=== PATIENT | male | born 1950 | race Caucasian/White ===

== ENCOUNTER 2020-06-16 08:13 | Outpatient (CLI) | payer MEDICARE, OTHER ==
[2020-06-16 14:31] LABS: INR-International Normal Ratio 0.9; Prothrombin Time 12.3 sec (12.0-14.7)
[2020-06-16 14:39] LABS: #Basophils 0.1 thou/uL (0.0-0.2); #Eosinphils 0.5 thou/uL (0.0-0.7); #Monocytes 1.1 thou/uL (0.11-0.59); #Neutrophils 6.3 thou/uL (1.40-6.50); %Basophils 0.7 % (0.0-1.0); %Eosinophils 4.4 % (0.0-10.0); %Lymphocytes 27.2 % (21.0-51.0); %Monocytes 10.3 % (0.0-10.0); %Neutrophils 57.4 % (42.0-75.0); Hemoglobin 15.7 g/dL (14.0-18.0); Mean Corpuscular HGB CONC 34.3 g/dL (32.0-36.0); Mean Corpuscular Hemoglobin 31.7 pg (27.0-31.0); Mean Corpuscular Volume 92.4 fL (78.0-98.0); Mean Platelet Volume 9.5 fL (7.4-10.4); Platelet Count 248 thou/uL (130-400); RBC Distribution Width 12.3 % (11.5-14.5); Red Blood Cell (RBC) Count 4.94 mill/uL (4.70-6.10)
[2020-06-16 15:29] LABS: Chloride 101 mmol/L (98-107); Potassium 4.1 mmol/L (3.5-5.1); Sodium 137 mmol/L (136-145)
[2020-06-16 15:30] LABS: Calcium 9.6 mg/dL (7.8-10.44); Glucose 88 mg/dL (83-110)
[2020-06-16 15:32] LABS: Anion Gap 13 mmol/L (10-20); Carbon Dioxide 27 mmol/L (23-31)
[2020-06-16 15:34] LABS: Calc. Creatinine Clearance 0 mL/min (70-130); Estimated GFR-MDRD 61
[2020-06-16 15:35] LABS: BUN (Urea Nitrogen) 19 mg/dL (8.4-25.7)
[2020-06-17 13:49] LABS: SARS-CoV-2 MS2 Positive; SARS-CoV-2 N Gene Negative; SARS-CoV-2 S Gene Negative; SARS-CoV-2 by NAA Not Detected (NotDetected); SARS-CoV-2 orf1ab Negative
== END 2020-06-16 08:14 | disposition home or self-care (01) ==
LOC: LABBT 08:13
PROVIDERS: ATTEND Orthopaedic Surgery
DX: Z01.812 Encounter for preprocedural laboratory examination (principal); Z20.828 Contact with and (suspected) exposure to other viral communicable diseases; M17.12 Unilateral primary osteoarthritis, left knee
CPT/HCPCS: 80048; 85025; 85610; U0003; 87635

== ENCOUNTER 2020-06-16 11:30 | Inpatient (IN) | payer MEDICARE, OTHER ==
[2020-06-21] MEDS ORDERED: Fentanyl 100 MCG/2 ML VIAL ONE ×2 (08:47→09:04)
[2020-06-21] MEDS ORDERED: Vancomycin 1.5 GRAM/300 ML BAG ONE (09:02)
[2020-06-21] MEDS ORDERED: Tranexamic Acid 1,000 MG/10 ML VIAL ONE (09:02)
[2020-06-21] MEDS ORDERED: Sodium Chloride 0.9% 100 ML ONE (09:03)
[2020-06-21] MEDS ORDERED: Midazolam HCl 2 mg/2 ml Vial ONE (09:04)
[2020-06-21] MEDS ORDERED: HYDROcodone/Acetaminophen 10/325 mg Tablet PO PRN (09:38)
[2020-06-21] MEDS ORDERED: Promethazine HCl 25 MG/ML VIAL IM PRN ×2 (09:38→11:31)
[2020-06-21] MEDS ORDERED: Ondansetron PF 4 MG/2 ML Vial IVP PRN ×2 (09:38→11:31)
[2020-06-21] MEDS ORDERED: traMADol HCl 50 MG TAB PO PRN ×2 (09:38)
[2020-06-21] MEDS ORDERED: Zolpidem Tartrate 5 MG TAB PO PRN ×2 (09:38→11:31)
[2020-06-21] MEDS ORDERED: Ropivacaine HCl/PF 250 ML in Premix Bag 1 BAG NERVE BLCK SCH (09:38)
[2020-06-21] MEDS ORDERED: Fentanyl 100 MCG/2 ML VIAL IV PRN (09:39)
[2020-06-21] MEDS ORDERED: Ropivacaine 0.2% HCl/PF (40 MG/20 ML VIAL) ONE (09:52)
[2020-06-21] MEDS ORDERED: PROPOFOL 200 MG/20 ML VIAL ONE (09:52)
[2020-06-21] MEDS ORDERED: Dexamethasone 20 MG/5 ML VIAL ONE (09:52)
[2020-06-21] MEDS ORDERED: Bupivacaine HCl 0.5%/Epinephrine 1:200,000/PF 30 ml Vial ONE (09:52)
[2020-06-21] MEDS ORDERED: Ondansetron PF 4 MG/2 ML Vial ONE (09:52)
[2020-06-21] MEDS ORDERED: EPHEDRINE 25 MG/5 ML SYRINGE ONE (09:52)
[2020-06-21] MEDS ORDERED: diphenhydrAMINE 25 MG CAP PO PRN (11:31)
[2020-06-21] MEDS ORDERED: Acetaminophen 325 MG TAB PO PRN (11:31)
[2020-06-21 12:58] VITALS: BMI 28.5
--- NOTE | 2020-06-21 13:01 | RAD ---
LEFT KNEE 2 VIEWS: Date: 06/21/2020 HISTORY: Total knee arthroplasty postop. FINDINGS/IMPRESSION: There are recent postop changes of total knee arthroplasty in good position and alignment. Soft tissu e air is present. POS: OFF
[2020-06-21] MEDS: Ketorolac Tromethamine 30 MG/ML VIAL IVP SCH ×3 (13:16→23:46)
[2020-06-21] MEDS: Sodium Chloride 0.9% 1,000 ML IV SCH ×2 (15:06→23:14)
--- NOTE | 2020-06-21 15:54 | OP ---
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 OPERATIVE PROCEDURE: Cemented posterior stabilized computer-assisted navigated left total knee arthroplasty. DOCKET SPECIALIST: Freeman Du PA-C. ANESTHESIA: General via LMA augmented with indwelling adductor canal and single-shot sciatic block. COMPONENTS USED: [facility] Triathlon size 6 posterior stabilized cemented femoral component with a size 6 primary tibial base plate, 9 mm polyethylene fixed bearing posterior stabilized polyethylene insert, and A38 patella button. FINDINGS: End-stage severe degenerative tricompartmental disease, [id number] arthrosis, periarticular osteophyte formation, large serous effusion, hypertrophic synovium, changes consistent with degenerative tricompartmental osteoarthritis, and multidirectional instability to include medial collateral, anterior cruciate, and posterior cruciate ligaments. Severe dishing of tibial plateau. TOURNIQUET TIME: 63 minutes at 300 mmHg. FLUIDS: Input, 1 L crystalloid. Output, none recorded. No Wong placed. ESTIMATED BLOOD LOSS: Less than 100. DRAINS: None. SPECIMENS: None. COMPLICATIONS: None. COUNTS: Correct. INDICATION FOR SURGERY: Leslie is a 70-year-old white male, who has had progressive left knee pain and problems with standing and walking for the last 5 to 7 years. He has failed conservative management and elected to proceed with total knee arthroplasty as definitive treatment of his pain. PROCEDURE IN DETAIL: After informed consent was obtained in the preoperative holding area, the patient was taken to the operative suite where general anesthesia was induced. Once adequate level of general anesthesia was obtained, the patient was positioned and a well-padded tourniquet was placed around the left proximal thigh. The left lower extremity was then prepped and draped in the usual sterile fashion. Prior to exsanguination, a time-out was called and all members of the surgical team agreed upon site, surgeon, and patient. The extremity was then exsanguinated and the tourniquet was raised. A midline longitudinal incision was then made directly over the patella extending 2 fingerbreadths above the superior pole of the patella and 2 fingerbreadths inferior to the inferior patellar pole of the patella. Deeper subcutaneous layers were dissected sharply and local bleeding was controlled with Bovie electrocautery. A quad tendon longitudinal split was then made sharply and a median parapatellar arthrotomy was carried out both sharp and with Bovie electrocautery, carried down to 1 fingerbreadth medial to the tibial tubercle. The knee was then placed into flexion and the patella was everted nicely, and a copious fat pad ectomy was performed allowing for greater exposure of the tibia. The computer-assisted distal femoral fiducial was then placed and pinned firmly, and the distal femoral cutting guide was pinned firmly into place. The oscillating saw was then used to remove the appropriate amount of bone. The 4-in-1 cutting block was then placed on the distal femur and the oscillating saw was used to remove the appropriate amount of bone off the anterior, posterior, and chamfer cuts. The intercondylar box cutting guide was then placed and pinned firmly into place. We used the oscillating saw to remove the medial wall of the lateral femoral condyle and lateral wall of the medial femoral condyle and the notch resecting osteotome was then used to create the box cut, and the PCL was removed with Bovie electrocautery. After completion of bone cuts, the anterior cruciate ligament was resected sharply and the posterior cruciate ligament retractor was placed and the tibia was subluxed for better exposure. Partial meniscectomies were carried out, and the tibial computer-assisted fiducial was pinned, and the cutting guide was placed. Oscillating saw was then used to remove the bone, with Hohmann retractors used to take care and protect the collateral ligaments. After the tibial resection was performed, a laminar registered nurse nursery was placed in between the freshened bone cuts. The knee placed at 90 degrees and further bilateral meniscectomies were carried out, and the curved osteotome and curettage were used to remove any excess bone spurs in the posterior compartment. The trial femoral component, tibial baseplate were placed with the appropriate polyethylene trial insert with an appropriate polyethylene spacer and patellar button. The knee was taken through full range of motion with flexion and extension from 0 to 90 degrees and patellar broach squarely in the trochlea without any squinting or subluxation noted. The knee was also stable to varus and valgus stressing at 0, 15, 45, and 90 degrees of flexion. The drawer was negative. All trial components were then removed and the keel punch was used to provide the appropriate defect in the tibia with a mallet. The freshened bone cuts were copiously irrigated with pulsatile lavage of about 1.5 L to remove all excess debris. The freshened bone cuts were then dried with suction and lap sponge. The knee was placed in flexion and retractors were placed to provide access to all bone cuts. Tobramycin-impregnated methyl methacrylate cement was then placed on the freshened bone cuts and implants which were malleted firmly into place. Curettage and [place] elevators were used to remove any excess bone cement. The knee was placed into full extension and the patellar button was placed under compression, and the cement was allowed to cure. Once completed, the components were again taken through full range of motion and copious irrigation of the knee was carried out with another liter of normal saline. All components were inspected fully with full range of motion and varus and valgus stressing. There was no laxity noted and full extension was observed clinically. Primary closure was accomplished with #2 interrupted Vicryl stitch of the arthrotomy defect. This was oversewn with a #2 running Quill barbed stitch. The gravitational platelet system was then injected into the arthrotomy prior to closure. The subcutaneous layer was then closed with a running 0 barbed Monocryl stitch and skin closure accomplished with a running subcuticular 3-0 Monocryl barbed Quill stitch and augmented with cement on the skin. Tourniquet was lowered. Good spontaneous return of distal pulses was noted clinically and a sterile dressing was applied to the incision. The procedure was terminated without any complications. The patient was awakened in the operative suite and the patient was taken to the recovery room in stable condition. Job ID: [id number]
[2020-06-21] MEDS: CEFAZOLIN 2 GM in Premix Bag 1 BAG IVPB SCH (18:08)
[2020-06-21] MEDS: Aspirin 81 mg Enteric Coated Tablet PO SCH (20:14)
[2020-06-21] MEDS: Metoprolol Tartrate 50 MG TAB PO SCH (20:14)
[2020-06-21] MEDS: Lisinopril 5 MG TAB PO SCH (20:14)
[2020-06-21] MEDS: HYDROcodone/Acetaminophen 10/325 mg Tablet PO PRN (20:17)
[2020-06-22] MEDS: CEFAZOLIN 2 GM in Premix Bag 1 BAG IVPB SCH (01:29)
[2020-06-22 05:13] LABS: Hemoglobin 12.9 g/dL (14.0-18.0); Mean Corpuscular HGB CONC 33.3 g/dL (32.0-36.0); Mean Corpuscular Hemoglobin 31.3 pg (27.0-31.0); Mean Platelet Volume 8.6 fL (7.4-10.4); Platelet Count 184 thou/uL (130-400); RBC Distribution Width 12.8 % (11.5-14.5); Red Blood Cell (RBC) Count 4.11 mill/uL (4.70-6.10); White Blood Cell (WBC) Count 18.1 thou/uL (4.8-10.8)
[2020-06-22] MEDS: Ketorolac Tromethamine 30 MG/ML VIAL IVP SCH ×4 (06:21→23:55)
[2020-06-22] MEDS: Lisinopril 5 MG TAB PO SCH ×2 (08:05→20:36)
[2020-06-22] MEDS: Aspirin 81 mg Enteric Coated Tablet PO SCH ×2 (08:05→20:36)
[2020-06-22] MEDS: Senokot S 8.6-50 MG TAB PO SCH ×2 (08:06→20:34)
[2020-06-22] MEDS: Multivitamin W/ Minerals 1 TAB PO SCH (08:06)
[2020-06-22] MEDS: Hydrochlorothiazide 25 MG TAB PO SCH (08:07)
[2020-06-22] MEDS: Metoprolol Tartrate 50 MG TAB PO SCH ×2 (08:07→20:35)
[2020-06-22] MEDS: Ferrous Gluconate 324 MG TAB PO SCH ×2 (08:07→20:36)
[2020-06-22] MEDS: HYDROcodone/Acetaminophen 10/325 mg Tablet PO PRN ×2 (08:08→20:35)
[2020-06-22] MEDS ORDERED: Non-Formulary Item 1 EACH (Multivitamin [Multi-Day Vitamins] 1 TABLET) PO SCH (09:00)
[2020-06-22] MEDS ORDERED: Aspirin 325 mg Enteric Coated Tablet PO SCH (09:00)
--- NOTE | 2020-06-22 11:02 | PRG ---
DATE OF SERVICE: 06/22/2020 SUBJECTIVE: Leslie is a 70-year-old white male, who is postop day 1 from a left total knee arthroplasty in utilizing a posterior stabilized construct. He is doing relatively well. His pain is controlled and he has no complaints. He does admit to a little bit of weakness in the left leg, especially with inability to dorsiflex. OBJECTIVE: VITAL SIGNS: Temperature 98.1, pulse 70 and regular, respiratory rate is 14 and nonlabored, O2 saturation is 94% on room air, blood pressure is 117/66. GENERAL: He is alert and oriented to person, place, time, and situation. Responsive and appropriate with examiner. His incision is clean. No strike through. No erythema. He does have a footdrop on the left and he has dorsiflexion, but he does have inversion and plantar flexion. Hemoglobin and hematocrit are 12.9 and 38.6. IMPRESSION: A 70-year-old male, postoperative day 1, left total knee arthroplasty, doing very well with the exception of left footdrop. Pain is controlled. Stable hemoglobin and hematocrit. PLAN: Continue current care. We will re-examine tomorrow after removal of block; if his dorsiflexion improves, give consideration to ankle-foot orthosis should it persist. Job ID: [id number]
[2020-06-22] MEDS: Sodium Chloride 0.9% 1,000 ML IV SCH ×2 (12:22→18:12)
[2020-06-23] MEDS: Sodium Chloride 0.9% 1,000 ML IV SCH (03:37)
[2020-06-23] MEDS: Ketorolac Tromethamine 30 MG/ML VIAL IVP SCH (05:18)
[2020-06-23] MEDS: Aspirin 81 mg Enteric Coated Tablet PO SCH (08:07)
[2020-06-23] MEDS: Hydrochlorothiazide 25 MG TAB PO SCH (08:07)
[2020-06-23] MEDS: Lisinopril 5 MG TAB PO SCH (08:07)
[2020-06-23] MEDS: Multivitamin W/ Minerals 1 TAB PO SCH (08:07)
[2020-06-23] MEDS: Senokot S 8.6-50 MG TAB PO SCH (08:07)
[2020-06-23] MEDS: Ferrous Gluconate 324 MG TAB PO SCH (08:07)
[2020-06-23] MEDS: Metoprolol Tartrate 50 MG TAB PO SCH (08:08)
[2020-06-23] MEDS: HYDROcodone/Acetaminophen 10/325 mg Tablet PO PRN (08:08)
[2020-06-23 08:15] VITALS: TEMP 98.3
[2020-06-23 11:50] VITALS: BP 104/63
== END 2020-06-23 14:15 | disposition home or self-care (01) | DRG 470 ==
LOC: SURG A 06-21 08:12 → SJJU 06-21 12:18
PROVIDERS: ADMIT Orthopaedic Surgery; ATTEND Orthopaedic Surgery
PROC: 0SRD0J9 Replacement of Left Knee Joint with Synthetic Substitute, Cemented, Open Approach (ICD-10-PCS; principal; 2020-06-21)
PROC: 8E0YXBZ Computer Assisted Procedure of Lower Extremity (ICD-10-PCS; 2020-06-21)
DX: M17.12 Unilateral primary osteoarthritis, left knee (principal); M21.372 Foot drop, left foot; I10 Essential (primary) hypertension; I25.10 Atherosclerotic heart disease of native coronary artery without angina pectoris; K21.9 Gastro-esophageal reflux disease without esophagitis; Z96.651 Presence of right artificial knee joint; N40.0 Benign prostatic hyperplasia without lower urinary tract symptoms; I25.2 Old myocardial infarction; Z95.1 Presence of aortocoronary bypass graft; Z85.828 Personal history of other malignant neoplasm of skin; Z79.899 Other long term (current) drug therapy; Z79.82 Long term (current) use of aspirin
CPT/HCPCS: 36415; 85027; C1713; C1776; J0670; J0690; J1100; J1885; J2250; J2405; J2704; J2795; J3010; J3370; J3490

== ENCOUNTER 2023-04-19 10:09 | Outpatient (CLI) | payer MEDICARE, OTHER ==
[2023-04-19 12:26] LABS: #Eosinphils 0.2 10x3/uL (0.0-0.5); #Monocytes 1.3 10x3/uL (0.0-1.1); #Neutrophils 6.5 10x3/uL (1.5-8.4); %Basophils 0.3 % (0.0-2.0); %Eosinophils 2.2 % (0.0-6.0); %Lymphocytes 22.3 % (18.0-47.0); %Monocytes 12.8 % (0.0-10.0); %Neutrophils 62.1 % (40.0-75.0); Hemoglobin 15.2 g/dL (13.5-17.5); Mean Corpuscular HGB CONC 34.3 g/dL (32.0-36.0); Mean Corpuscular Hemoglobin 30.5 pg (27.0-33.0); Mean Corpuscular Volume 88.8 fl (81.2-95.1); Mean Platelet Volume 11.3 fl (7.4-10.4); Platelet Count 211 10x3/uL (150-450); Red Blood Cell (RBC) Count 4.99 10x6/uL (4.32-5.72); White Blood Cell (WBC) Count 10.4 10x3/uL (3.5-10.5)
[2023-04-19 12:57] LABS: Anion Gap 14 mmol/L (10-20); BUN (Urea Nitrogen) 18 mg/dL (8.4-25.7); Calc. Creatinine Clearance 0 mL/min (70-130); Calcium 9.2 mg/dL (7.8-10.44); Carbon Dioxide 29 mmol/L (23-31); Chloride 103 mmol/L (98-107); Estimated GFR 77; Glucose 90 mg/dL (83-110); Sodium 142 mmol/L (136-145)
== END 2023-04-19 10:10 | disposition home or self-care (01) ==
LOC: LABBT 10:09
PROVIDERS: ATTEND Orthopaedic Surgery
DX: Z01.818 Encounter for other preprocedural examination (principal); M12.811 Other specific arthropathies, not elsewhere classified, right shoulder
CPT/HCPCS: 71046; 80048; 85025; 93005; 93010

== ENCOUNTER 2023-04-23 05:50 | Day surgery (SDC) | payer MEDICARE, OTHER ==
[2023-04-19 11:01] VITALS: BMI 27.7
[2023-04-23] MEDS ORDERED: Vancomycin (BATCH) 1.5 GRAM/300 ML BAG ONE (06:22)
[2023-04-23] MEDS ORDERED: Tranexamic Acid 1,000 MG/10 ML VIAL ONE ×2 (06:22→10:12)
[2023-04-23] MEDS ORDERED: Sodium Chloride 0.9% 100 ML ONE ×2 (06:22→07:13)
[2023-04-23] MEDS ORDERED: Ropivacaine 0.5% HCl/PF (150 MG/30 ML VIAL) ONE (06:55)
[2023-04-23] MEDS ORDERED: fentaNYL 50 mcg/mL 1 mL Vial ONE (06:55)
[2023-04-23] MEDS ORDERED: Midazolam HCl 2 mg/2 ml Vial ONE (06:55)
[2023-04-23] MEDS ORDERED: CEFAZOLIN 2 GM VIAL ONE (07:13)
[2023-04-23] MEDS ORDERED: PROPOFOL 200 MG/20 ML VIAL ONE (07:27)
[2023-04-23] MEDS ORDERED: Ondansetron PF 4 MG/2 ML Vial ONE (07:27)
[2023-04-23] MEDS ORDERED: Rocuronium Bromide 10 MG/ML (10ML VIAL) ONE (07:27)
[2023-04-23] MEDS ORDERED: PHENYLEPHRINE-NS 100 MCG/ML 10 ML SYRINGE ONE (07:27)
[2023-04-23] MEDS ORDERED: fentaNYL PF 100 MCG/2 ML SYRINGE ONE (07:28)
[2023-04-23] MEDS ORDERED: traMADol HCl 50 MG TAB PO PRN ×2 (07:45)
[2023-04-23] MEDS ORDERED: Ondansetron PF 4 MG/2 ML Vial IVP PRN (07:45)
[2023-04-23] MEDS ORDERED: Promethazine HCl 25 MG/ML VIAL IM PRN (07:45)
[2023-04-23] MEDS ORDERED: HYDROcodone/Acetaminophen 10/325 mg Tablet PO PRN ×2 (07:45)
[2023-04-23] MEDS ORDERED: Zolpidem Tartrate 5 MG TAB PO PRN (07:45)
[2023-04-23] MEDS ORDERED: Ropivacaine 0.2% 550 ML 550 ML NERVE BLCK SCH (07:45)
[2023-04-23] MEDS ORDERED: SUGAMMADEX SODIUM 200 MG/2 ML VIAL ONE (09:22)
[2023-04-23] MEDS ORDERED: Ketorolac Tromethamine 30 MG/ML VIAL IVP SCH (12:00)
== END 2023-04-23 13:06 | disposition home or self-care (01) ==
LOC: SDC 05:50
PROVIDERS: ATTEND Orthopaedic Surgery
PROC: 0RRJ00Z Replacement of Right Shoulder Joint with Reverse Ball and Socket Synthetic Substitute, Open Approach (ICD-10-PCS; principal; 2023-04-23)
DX: M12.811 Other specific arthropathies, not elsewhere classified, right shoulder (principal); I10 Essential (primary) hypertension; I25.10 Atherosclerotic heart disease of native coronary artery without angina pectoris; E78.5 Hyperlipidemia, unspecified; K21.9 Gastro-esophageal reflux disease without esophagitis; Z79.899 Other long term (current) drug therapy; Z79.82 Long term (current) use of aspirin; Z96.652 Presence of left artificial knee joint
CPT/HCPCS: 23472; A4306; C1713 ×6; J3010; J3370; J2250; J2405; J2704; J2795; J3490

== ENCOUNTER 2023-06-19 11:54 | Outpatient (CLI) | payer MEDICARE, OTHER | END 2023-06-19 11:55 | disposition home or self-care (01) | LOC: RAD 11:54 | PROVIDERS: ATTEND Internal Medicine Critical Care Medicine | DX: R06.00 Dyspnea, unspecified (principal); I51.7 Cardiomegaly | CPT/HCPCS: 71046 ==

== ENCOUNTER 2023-06-26 09:51 | Inpatient (IN) | payer MEDICARE, OTHER ==
[2023-06-26 10:13] LABS: #Eosinphils 0.2 thou/uL (0.0-0.7); #Monocytes 0.9 thou/uL (0.11-0.59); #Neutrophils 8.1 thou/uL (1.40-6.50); %Basophils 0.2 % (0.0-1.0); %Eosinophils 1.9 % (0.0-10.0); %Lymphocytes 21.2 % (21.0-51.0); %Monocytes 7.5 % (0.0-10.0); %Neutrophils 68.9 % (42.0-75.0); Hematocrit 45.5 % (42.0-52.0); Hemoglobin 15.6 g/dL (14.0-18.0); Mean Corpuscular HGB CONC 34.3 g/dL (32.0-36.0); Mean Corpuscular Hemoglobin 29.9 pg (27.0-31.0); Mean Corpuscular Volume 87.3 fl (78.0-98.0); Mean Platelet Volume 10.8 fL (7.4-10.4); Platelet Count 300 10x3/uL (130-400); RBC Distribution Width 14.5 % (11.5-14.5); Red Blood Cell (RBC) Count 5.21 mill/uL (4.70-6.10); White Blood Cell (WBC) Count 11.7 10x3/uL (4.8-10.8)
[2023-06-26 10:39] LABS: ALT (SGPT) 34 U/L (8-55); AST (SGOT) 30 U/L (5-34); Albumin 4.3 g/dL (3.4-4.8); Alkaline Phosphatase 67 U/L (40-110); Anion Gap 13 mmol/L (10-20); BUN (Urea Nitrogen) 16 mg/dL (8.4-25.7); Bilirubin, Total 0.8 mg/dL (0.2-1.2); Calc. Creatinine Clearance 0 mL/min (70-130); Carbon Dioxide 26 mmol/L (23-31); Chloride 103 mmol/L (98-107); Estimated GFR 70; Globulin 3.5 g/dL (2.4-3.5); Glucose 96 mg/dL (83-110); Potassium 3.6 mmol/L (3.5-5.1); Protein, Total 7.8 g/dL (5.8-8.1); Sodium 138 mmol/L (136-145)
[2023-06-26 10:41] LABS: Troponin I 0.067 ng/mL (< 0.028)
[2023-06-26 10:50] LABS: Prothrombin Time 13.7 sec (12.0-14.7)
[2023-06-26 10:51] LABS: PTT 29.8 sec (22.9-36.1)
[2023-06-26 10:53] LABS: D-Dimer Test 1.52 *mcg/mL (0.27-0.43)
[2023-06-26] MEDS ORDERED: Iopamidol-370 76% 500 ML MDV (1 ML CHARGE) ONE (11:40)
[2023-06-26] MEDS ORDERED: Aspirin Chewable 81 MG TAB ONE (13:33)
[2023-06-26] MEDS ORDERED: Furosemide 40 MG/4 ML VIAL ONE (13:33)
[2023-06-26] MEDS ORDERED: Nitroglycerin 2% Ointment 1 INCH/1 GM Packet ONE (13:33)
[2023-06-26 14:15] LABS: Troponin I 0.067 ng/mL (< 0.028)
[2023-06-26 18:29] LABS: Troponin I 0.074 ng/mL (< 0.028)
[2023-06-26] MEDS ORDERED: Ondansetron PF 4 MG/2 ML Vial IVP PRN (18:40)
[2023-06-26] MEDS ORDERED: Acetaminophen 325 MG TAB PO PRN (18:40)
[2023-06-26] MEDS ORDERED: HYDROcodone/Acetaminophen 5/325 mg Tablet PO PRN ×2 (18:40)
[2023-06-26] MEDS ORDERED: Bisacodyl 5 MG TAB PO PRN (18:40)
[2023-06-26] MEDS ORDERED: Furosemide 40 MG/4 ML VIAL SLOW IVP SCH (18:45)
[2023-06-26 20:04] VITALS: BMI 27.3
[2023-06-26] MEDS ORDERED: Communication Order-Pharmacy FS SCH (21:15)
[2023-06-27 05:11] LABS: #Eosinphils 0.2 thou/uL (0.0-0.7); #Neutrophils 7.3 thou/uL (1.40-6.50); %Basophils 0.3 % (0.0-1.0); %Eosinophils 2.2 % (0.0-10.0); %Lymphocytes 19.4 % (21.0-51.0); %Monocytes 9.5 % (0.0-10.0); %Neutrophils 68.3 % (42.0-75.0); Hematocrit 39.3 % (42.0-52.0); Hemoglobin 13.1 g/dL (14.0-18.0); Mean Corpuscular HGB CONC 33.3 g/dL (32.0-36.0); Mean Corpuscular Hemoglobin 29.6 pg (27.0-31.0); Mean Corpuscular Volume 88.9 fl (78.0-98.0); Mean Platelet Volume 11.3 fL (7.4-10.4); Platelet Count 231 10x3/uL (130-400); RBC Distribution Width 14.4 % (11.5-14.5); Red Blood Cell (RBC) Count 4.42 mill/uL (4.70-6.10); White Blood Cell (WBC) Count 10.7 10x3/uL (4.8-10.8)
[2023-06-27] MEDS: Furosemide 40 MG/4 ML VIAL SLOW IVP SCH ×2 (05:14→14:08)
[2023-06-27 05:42] LABS: Anion Gap 11 mmol/L (10-20); BUN (Urea Nitrogen) 19 mg/dL (8.4-25.7); Calc. Creatinine Clearance 74 mL/min (70-130); Calcium 9.3 mg/dL (7.8-10.44); Carbon Dioxide 27 mmol/L (23-31); Chloride 105 mmol/L (98-107); Estimated GFR 67; Glucose 89 mg/dL (83-110); Potassium 3.5 mmol/L (3.5-5.1); Sodium 139 mmol/L (136-145)
[2023-06-27] MEDS ORDERED: Lidocaine 1% (PF) 30 ML VIAL ONE (06:22)
[2023-06-27] MEDS ORDERED: Midazolam HCl 2 mg/2 ml Vial ONE (06:22)
[2023-06-27] MEDS ORDERED: fentaNYL 50 mcg/mL 1 mL Vial ONE (06:23)
[2023-06-27] MEDS ORDERED: Heparin 10,000 UNITS/ 10 ML VIAL ONE (06:24)
[2023-06-27] MEDS ORDERED: Nitroglycerin 50 MG/250 ML BOT 0 ML ONE (06:24)
[2023-06-27] MEDS ORDERED: Potassium Chloride 10 MEQ TAB PO SCH (08:00)
[2023-06-27] MEDS ORDERED: Aspirin 325 mg Enteric Coated Tablet PO SCH (09:00)
[2023-06-27] MEDS ORDERED: Lisinopril 10 MG TAB PO SCH (09:00)
[2023-06-27] MEDS ORDERED: Nitroglycerin 0.4 MG TAB (25 Tab Bottle) SL PRN (09:21)
[2023-06-27] MEDS ORDERED: Sodium Chloride 0.9% 200 ML IV PRN (09:21)
[2023-06-27] MEDS ORDERED: Acetaminophen/Codeine 30-300mg Tablet PO PRN ×2 (09:21)
[2023-06-27 09:55] LABS: Cardiac Risk 3.7 (Less than 4.5)
[2023-06-27] MEDS ORDERED: Aspirin 81 mg Enteric Coated Tablet PO SCH (10:45)
[2023-06-27] MEDS ORDERED: Iopamidol 370 76% 100 ML VIAL ONE (15:20)
[2023-06-27 16:49] VITALS: TEMP 98.3
[2023-06-27 16:58] VITALS: BP 132/77
[2023-06-27] MEDS ORDERED: Atorvastatin Calcium 10 MG TAB PO SCH (21:00)
[2023-06-28] MEDS ORDERED: Aspirin 81 mg Enteric Coated Tablet PO SCH (09:00)
[2023-06-29] MEDS ORDERED: Sacubitril 24MG/Valsartan 26 MG TAB PO SCH (09:00)
== END 2023-06-27 20:07 | disposition home or self-care (01) | DRG 286 ==
LOC: ERS 09:51 → ERHOLD 13:10 → 2SW 18:29 → IMCU/EMU 18:30 → 2SW 18:39 → OBSVTOIN 06-27 13:35
PROVIDERS: ADMIT Internal Medicine; ATTEND Family Medicine
PROC: 4A023N8 Measurement of Cardiac Sampling and Pressure, Bilateral, Percutaneous Approach (ICD-10-PCS; principal; 2023-06-27)
PROC: B2151ZZ Fluoroscopy of Left Heart using Low Osmolar Contrast (ICD-10-PCS; 2023-06-27)
PROC: B2111ZZ Fluoroscopy of Multiple Coronary Arteries using Low Osmolar Contrast (ICD-10-PCS; 2023-06-27)
PROC: B2131ZZ Fluoroscopy of Multiple Coronary Artery Bypass Grafts using Low Osmolar Contrast (ICD-10-PCS; 2023-06-27)
PROC: B2181ZZ Fluoroscopy of Left Internal Mammary Bypass Graft using Low Osmolar Contrast (ICD-10-PCS; 2023-06-27)
DX: I11.0 Hypertensive heart disease with heart failure (principal); I50.43 Acute on chronic combined systolic (congestive) and diastolic (congestive) heart failure; I25.10 Atherosclerotic heart disease of native coronary artery without angina pectoris; K21.9 Gastro-esophageal reflux disease without esophagitis; E78.5 Hyperlipidemia, unspecified; Z96.653 Presence of artificial knee joint, bilateral; Z96.611 Presence of right artificial shoulder joint; Z95.1 Presence of aortocoronary bypass graft; Z79.82 Long term (current) use of aspirin; Z79.899 Other long term (current) drug therapy; I25.2 Old myocardial infarction
CPT/HCPCS: 36415; 71045; 71275; 75710; 80048; 80053; 80061; 83880; 84484; 85025; 85379; 85610; 85730; 93005; 93306; 93459; 93798; 96374; 96376; 99152; 99153; C1725; C1769; C1887; G0378; J1644; J1940; J2001; J2250; J3010; Q9967

== ENCOUNTER 2023-08-16 16:15 | Observation (INO) | payer MEDICARE, OTHER ==
[2023-08-16] MEDS ORDERED: Ondansetron ODT 4 MG TAB PO PRN (18:31)
[2023-08-16] MEDS ORDERED: traMADol HCl 50 MG TAB PO PRN (18:31)
[2023-08-16] MEDS ORDERED: TETANUS, DIPHTHERIA TOX,ADULT (TDVAX) 0.5 ML VIAL IM ONE (18:31)
[2023-08-16] MEDS ORDERED: Ondansetron PF 4 MG/2 ML Vial IVP PRN ×2 (18:31→18:45)
[2023-08-16] MEDS ORDERED: Morphine 4 MG/ML VIAL SLOW IVP PRN ×2 (18:31→18:37)
[2023-08-16] MEDS ORDERED: hydrALAZINE 20 MG/ML VIAL SLOW IVP PRN (18:31)
[2023-08-16] MEDS ORDERED: Ketorolac Tromethamine 30 MG/ML VIAL IVP PRN (18:34)
[2023-08-16] MEDS ORDERED: Ondansetron ODT 4 MG TAB SL PRN (18:45)
[2023-08-16] MEDS ORDERED: Acetaminophen 325 MG TAB PO PRN (18:45)
[2023-08-16] MEDS ORDERED: Ketorolac Tromethamine 30 MG/ML VIAL IVP SCH (18:45)
[2023-08-16] MEDS ORDERED: LevoFLOXacin 750 mg/D5W 750 MG in Premix 1 BAG IVPB SCH (20:00)
[2023-08-16 20:19] VITALS: BMI 26.8
[2023-08-16] MEDS: Famotidine 20 MG TAB PO SCH (21:37)
[2023-08-16] MEDS: Sacubitril 24MG/Valsartan 26 MG TAB PO SCH (21:38)
[2023-08-16] MEDS: Acetaminophen 500 MG TAB PO SCH (21:38)
[2023-08-17] MEDS ORDERED: D5 1/2 NS w/20 mEq KCL 1,000 ML IV SCH (06:30)
[2023-08-17] MEDS: Sacubitril 24MG/Valsartan 26 MG TAB PO SCH (07:22)
[2023-08-17] MEDS: Famotidine 20 MG TAB PO SCH (07:22)
[2023-08-17] MEDS: Acetaminophen 500 MG TAB PO SCH ×2 (07:22→11:49)
[2023-08-17] MEDS ORDERED: EPINEPHrine 1 MG/ML VIAL ONE (07:43)
[2023-08-17] MEDS ORDERED: Bupivacaine PF 0.5% 30 ML VIAL ONE (07:43)
[2023-08-17] MEDS ORDERED: SUGAMMADEX SODIUM 200 MG/2 ML VIAL ONE (08:21)
[2023-08-17] MEDS ORDERED: fentaNYL PF 100 MCG/2 ML SYRINGE ONE (08:21)
[2023-08-17] MEDS ORDERED: Lidocaine 1% PF 5 ML VIAL ONE (08:29)
[2023-08-17] MEDS ORDERED: PHENYLEPHRINE-NS 100 MCG/ML 10 ML SYRINGE ONE (08:29)
[2023-08-17] MEDS ORDERED: Esmolol 100 MG/10 ML VIAL ONE (08:29)
[2023-08-17] MEDS ORDERED: Rocuronium Bromide 10 MG/ML (10ML VIAL) ONE (08:29)
[2023-08-17] MEDS ORDERED: PROPOFOL 200 MG/20 ML VIAL ONE (08:29)
[2023-08-17] MEDS ORDERED: Ibuprofen 600 MG TAB PO PRN (08:36)
[2023-08-17] MEDS ORDERED: Aspirin 81 mg Enteric Coated Tablet PO SCH (09:00)
[2023-08-17] MEDS ORDERED: Aspirin 325 mg Enteric Coated Tablet PO SCH (09:00)
[2023-08-17] MEDS ORDERED: Atorvastatin Calcium 40 MG TAB PO SCH (09:00)
[2023-08-17] MEDS ORDERED: Promethazine HCl 25 MG/ML VIAL IM PRN (09:36)
[2023-08-17] MEDS ORDERED: Ondansetron HCl/PF 4 MG/2 ML Vial IVP PRN (09:36)
[2023-08-17 15:16] VITALS: BP 120/95; TEMP 98.1
== END 2023-08-17 15:48 | disposition home or self-care (01) ==
LOC: SURG B 18:13
PROVIDERS: ADMIT Specialist; ATTEND Specialist
PROC: 0FT44ZZ Resection of Gallbladder, Percutaneous Endoscopic Approach (ICD-10-PCS; principal; 2023-08-17)
PROC: 0WUF4JZ Supplement Abdominal Wall with Synthetic Substitute, Percutaneous Endoscopic Approach (ICD-10-PCS; 2023-08-17)
DX: K80.12 Calculus of gallbladder with acute and chronic cholecystitis without obstruction (principal); I25.10 Atherosclerotic heart disease of native coronary artery without angina pectoris; I42.9 Cardiomyopathy, unspecified; Z96.611 Presence of right artificial shoulder joint; Z96.653 Presence of artificial knee joint, bilateral; Z95.1 Presence of aortocoronary bypass graft; Z95.818 Presence of other cardiac implants and grafts
CPT/HCPCS: 47562; 96374; 96375; C1889 ×2; G0378 ×2; J0171; 88304; J1650; J1885; J1956; J2405; J2704; J3480; S0020